=== PATIENT | female | born 1950 | race Caucasian/White ===

== ENCOUNTER 2018-12-08 12:32 | Outpatient (CLI) | payer MEDICARE, OTHER ==
--- NOTE | 2018-12-08 15:32 | CT Report ---
Reason: PERSONAL HISTORY OF [facility] Procedure Date: 12/08/2018 Accession Number: [id number] / [id number] Procedure: CT - Low Dose Lung Cancer Screen CPT Code: FULL RESULT: EXAM CT LUNG SCREEN EXAM DATE: 12/08/2018 01:05 PM. HISTORY: 68-year-old patient with [id number] smoking history. Currently smoking: No. Years since quittin, quit in 2018. COMPARISON: None. TECHNIQUE: CT examination of the entire thorax without contrast was performed using low-dose technique. Thin section coronal, axial, sagittal and MIP axial images were obtained. In accordance with CT protocol optimization, one or more of the following dose reduction techniques were utilized for this exam: automated exposure control, adjustment of mA and/or KV based on patient size, or use of iterative reconstructive technique. FINDINGS: Nodules: Right upper lobe: None. Right middle lobe: None. Right lower lobe: 3 mm nodule image 59 series 4. Left upper lobe: 3 mm nodule image 110 and sub-2 mm nodule image 106. Left lower lobe: 3 mm nodule image 138. Emphysema: Mild. Pleura: Unremarkable. Aorta: Mild atherosclerotic disease. Mediastinum: Unremarkable. Coronary calcifications: Mild. Other pulmonary findings: None. Other extrapulmonary findings: Bilateral breast augmentation. IMPRESSION: Lung-RADS ASSESSMENT CATEGORY: 2 - benign appearance. Probability of malignancy: Less than 1%. RECOMMENDATION: Continue annual low dose screening CT of the chest as per lung RADS guidelines. [facility]
== END 2018-12-08 12:33 | disposition home or self-care (01) ==
LOC: DI 12:32
PROVIDERS: ATTEND Student in an Organized Health Care Education/Training Program
DX: Z12.2 Encounter for screening for malignant neoplasm of respiratory organs (principal); J43.9 Emphysema, unspecified; Z87.891 Personal history of nicotine dependence